=== PATIENT | female | born 1990 | race Two or more races ===

== ENCOUNTER 2017-02-18 01:11 | Emergency (ER) | payer MEDICAID ==
[~2017-02-18] VITALS: Ht 154.9 cm; Wt 59.0 kg
--- NOTE | 2017-02-18 01:41 | NUR ---
PT BIBMOHTER, PT C/O SEVERE LOWER ABD PAIN S/P HAVING SEX 1.5 HOURS AGO. PT AOX4 RR EVEN AND UNLABORED. NO SOB NOTED. NAD NOTED. NO NVD AT THIS TIME. PT GOWNED AND PLACED ON MONITOR WAITING FOR MD PENA.
--- NOTE | 2017-02-18 01:43 | NUR ---
URINE COLLECTED. CALLED LAB FOR DUKEY RIDER.
--- NOTE | 2017-02-18 01:47 | NUR ---
DR. DAMON AT BEDSIDE FOR EVAL.
[2017-02-18 02:11] LABS: BASOPHILS % (AUTO) 0.3 % (0.0-2.0); EOSINOPHILS % (AUTO) 0.1 % (0.0-6.0); HEMATOCRIT 38 % (33-45); HEMOGLOBIN 13.2 g/dL (11.5-14.8); LYMPHOCYTES # (AUTO) 1.8 /CMM (0.8-4.8); LYMPHOCYTES % (AUTO) 15.5 % (20.0-44.0); MEAN CORPUSCULAR HEMOGLOBIN 31 PG (26.0-33.0); MEAN CORPUSCULAR HGB CONC 35 g/dl (31.0-36.0); MEAN CORPUSCULAR VOLUME 89 fL (82-100); MONOCYTES # (AUTO) 0.6 /CMM (0.1-1.30); MONOCYTES % (AUTO) 4.9 % (2.0-12.0); NEUTROPHILS # (AUTO) 9.3 /CMM (1.8-8.9); NEUTROPHILS % (AUTO) 79.2 % (43.0-81.0); PLATELET COUNT (AUTO) 275 /CMM (150-450); RDW COEFFICIENT OF VARIATION 12.5 (11.5-15.0); RED BLOOD CELL COUNT(AUTO) 4.27 MIL/uL (4.0-5.2); WHITE BLOOD COUNT (AUTO) 11.8 K/uL (4.3-11.0)
[2017-02-18 02:22] LABS: CALCIUM, SERUM 8.8 mg/dL (8.5-10.1); CREATININE 0.7 mg/dL (0.6-1.3); POTASSIUM 3.9 mmol/L (3.5-5.1)
[2017-02-18 02:27] LABS: INR 0.96 (0.87-1.13); PROTHROMBIN TIME 10.2 SECS (9.5-12.7)
[2017-02-18 02:28] LABS: ALBUMIN 4.3 g/dL (3.4-5.0); BILIRUBIN,DIRECT 0.1 mg/dL (0.0-0.2); BILIRUBIN,TOTAL 0.4 mg/dL (0.2-1.0); TOTAL PROTEIN, SERUM 7.6 g/dL (6.4-8.2)
--- NOTE | 2017-02-18 02:50 | NUR ---
DR. DAMON AT BEDSIDE FOR PELVIC EXAM, QUINCY GILES AT BEDSIDE WITNESS.
[2017-02-18] MEDS ORDERED: ONDANSETRON 4 MG TAB.RAPDIS SL ONE (03:00)
[2017-02-18] MEDS ORDERED: HYDROCODONE/APAP 5/325MG 1 EACH TABLET PO ONE (03:00)
[2017-02-18] MEDS ORDERED: ONDANSETRON 4 MG TAB.RAPDIS ONE (03:04)
[2017-02-18] MEDS ORDERED: HYDROCODONE/APAP 5/325MG 1 EACH TABLET ONE (03:04)
--- NOTE | 2017-02-18 03:24 | NUR ---
ROSEY AT BEDSIDE
--- NOTE | 2017-02-18 04:29 | NUR ---
Patient discharged to home in stable condition. Written and verbal after care instructions given. Patient verbalizes understanding of instruction. ambulatory with a steady gait. instrcuted pt not to drive. pt verbalize understanding accompanied by mother.
[2017-02-18 04:32] VITALS: BP 136/83
== END 2017-02-18 04:32 | disposition home or self-care (01) ==
LOC: ER 01:12
DX: N83.201 Unspecified ovarian cyst, right side (principal)
CPT/HCPCS: 36415; 76856-TC; 80048-TC; 80076-TC; 84703-TC; 85025-TC; 85730-TC; A4606; Q0162; Z7610

== ENCOUNTER 2019-04-01 15:18 | Emergency (ER) | payer BC, MEDICAID ==
[~2019-04-01] VITALS: Ht 154.9 cm; Wt 70.8 kg
[2019-04-01 15:27] VITALS: BP 123/77
== END 2019-04-01 16:30 | disposition home or self-care (01) ==
LOC: ER 15:21
DX: T81.49XA Infection following a procedure, other surgical site, initial encounter (principal); L03.317 Cellulitis of buttock

== ENCOUNTER 2020-04-28 20:11 | Emergency (ER) | payer BC ==
[~2020-04-28] VITALS: Ht 154.9 cm; Wt 70.3 kg
--- NOTE | 2020-04-28 20:25 | NUR ---
PT CAME TO THE ED FOR C/O L SIDED CP RADITING TO THE BACK AND PALPITATIONS X 1 WK +NAUSEA. PT AAOX4, VSS,RESPIRATIONS EVEN AND UNLABORED ON RA W/ AND NOTED. PT CONNECTED TO THE [facility] OPERATOR AND POX
--- NOTE | 2020-04-28 20:55 | NUR ---
BLOOD COLLECTED AND SENT TO LAB
--- NOTE | 2020-04-28 21:05 | NUR ---
URINE COLLECTED AND SENT TO LAB
[2020-04-28 21:14] LABS: EOSINOPHILS % (AUTO) 3.5 % (0.0-6.0); HEMATOCRIT 42 % (33-45); HEMOGLOBIN 14.4 g/dL (11.5-14.8); LYMPHOCYTES # (AUTO) 1.6 /CMM (0.8-4.8); LYMPHOCYTES % (AUTO) 24.9 % (20.0-44.0); MEAN CORPUSCULAR HGB CONC 34 g/dl (31.0-36.0); MEAN CORPUSCULAR VOLUME 91 fL (82-100); MONOCYTES # (AUTO) 0.6 /CMM (0.1-1.30); NEUTROPHILS % (AUTO) 61.6 % (43.0-81.0); PLATELET COUNT (AUTO) 288 /CMM (150-450); RED BLOOD CELL COUNT(AUTO) 4.62 MIL/uL (4.0-5.2); WHITE BLOOD COUNT (AUTO) 6.5 K/uL (4.3-11.0)
[2020-04-28 21:30] LABS: ALANINE AMINOTRANSFERASE 15 U/L (12-78); ALBUMIN 4.1 g/dL (3.4-5.0); ALKALINE PHOSPHATASE 60 U/L (46-116); ASPARTATE AMINOTRANSFERASE 12 U/L (15-37); BILIRUBIN,DIRECT 0.1 mg/dL (0.0-0.2); BILIRUBIN,TOTAL 0.4 mg/dL (0.2-1.0); CALCIUM, SERUM 8.9 mg/dL (8.5-10.1); CARBON DIOXIDE 28 mmol/L (21-32); CHLORIDE 103 mmol/L (98-107); GLUCOSE 104 mg/dL (74-106); POTASSIUM 4.2 mmol/L (3.5-5.1); SODIUM SERUM 139 mmol/L (136-145); TOTAL PROTEIN, SERUM 7.7 g/dL (6.4-8.2); UREA NITROGEN, BLOOD 19 mg/dL (7-18)
--- NOTE | 2020-04-28 23:01 | NUR ---
Patient discharged to home in stable condition. Written and verbal after care instructions given. Patient verbalizes understanding of instruction.IV removed. Catheter intact and site benign. Pressure and 4x4 applied to site. No bleeding noted.
[2020-04-28 23:03] VITALS: BP 119/72
== END 2020-04-28 23:03 | disposition home or self-care (01) ==
LOC: ER 20:16
DX: R07.89 Other chest pain (principal)
CPT/HCPCS: 36415; 71045-TC; 80048-TC; 80076-TC; 83690-TC; 84484-TC; 84703-TC; 85025-TC; 87040-TC